=== PATIENT | male | born 1995 | race Caucasian/White ===

== ENCOUNTER 2023-04-26 11:42 | Emergency (ER) | payer OTHER, SELFPAY ==
--- NOTE | 2023-04-26 11:46 | ED.MALEGU ---
HPI - Male Genitourinary General Chief complaint: Urogenital-Male Stated complaint: testicular Swelling Time Seen by Provider: 04/26/23 11:45 Source: patient Mode of arrival: ambulatory Limitations: no limitations History of Present Illness HPI Narrative: Patient is a 27-year-old male that presents with right testicular swelling and pain that has increased over the last 2 weeks. Patient also reports change in urinary flow. Denies any pain with urination. Denies being sexually active and has not had any ejaculation. Denies any fever, chills, nausea, vomiting, diarrhea. Reports right testicle is always slightly larger than left, but is significantly larger at this time. Related Data Home Medications Medication Instructions Recorded Confirmed fluoxetine 40 mg capsule 40 mg PO DAILY 04/26/23 04/26/23 folic acid 1 mg tablet 1 mg PO DAILY 04/26/23 04/26/23 multivitamin with folic acid 400 1 tablet PO DAILY 04/26/23 04/26/23 mcg tablet (Daily-Lore (with folic acid)) propranolol 20 mg tablet 20 mg PO DAILY 04/26/23 04/26/23 thiamine HCl (vitamin B1) 10 mg PO DAILY 04/26/23 04/26/23 Allergies Allergy/AdvReac Type Severity Reaction Status Date / Time No Known Allergies Allergy Verified 04/26/23 11:59 Review of Systems Review of Systems: All systems reviewed & are unremarkable except as noted in HPI and below Constitutional: Constitutional: Denies chills, Denies fever(s), Denies headache(s), Denies malaise and Denies weakness Eyes: Eyes: Denies change in vision, Denies eye discharge and Denies irritation ENT: Denies otalgia, Denies headache(s), Denies nasal congestion, Denies nasal discharge, Denies sinus pain and Denies sore throat Cardiovascular: Cardiovascular: Denies chest pain, Denies edema, Denies palpitations and Denies dyspnea Respiratory: Respiratory: Denies cough and Denies dyspnea Gastrointestinal: Gastrointestinal: Denies abdominal pain, Denies diarrhea, Denies nausea and Denies vomiting Genitourinary: Genitourinary: Denies hematuria, Denies difficulty with ejaculations, Denies dysuria, Denies flank pain, Denies penile discharge, Reports scrotal swelling, Reports testicular pain and Denies urinary urgency Musculoskeletal: Musculoskeletal: Denies back pain and Denies numbness Integumentary/Breasts: Skin/Breast: Denies pruritus and Denies rash Neurologic: Denies headache(s), Denies numbness and Denies weakness Psychiatric: Psychiatric: Reports no additional psychiatric complaints Endocrine: Endocrine: Denies palpitations PMFSH Comments At time of signature, agree with nursing past medical, surgical, social and family history. There is no relevant family history pertinent to the presenting complaint. Exam Const: General: cooperative, healthy appearing, comfortable, no acute distress and well nourished Nutritional Appearance: well nourished Orientation/consciousness: patient oriented x3 HENMT: Head: normocephalic and atraumatic Ears: external ears normal Face/Nose/Sinus: Normal external nose present, Normal nares present and normal facial exam Face and sinus: normal facial exam Eyes: General: appearance normal, both eyes and all related structures Pupils: Equal, round and reactive pupils present EOM: EOMs intact bilaterally Neck: Neck: normal visual inspection, full ROM and supple Chest: Chest palpation & inspection: normal inspection of the chest Resp: Effort & Inspection: normal respiratory effort and able to speak in complete sentences Cardio: Rate: regular rate Rhythm: regular rhythm GI: Inspection: normal to inspection GI Palp: No abdominal tenderness and Yes Soft to palpation : General: Yes no CVA tenderness Penis: Yes normal penis Testes: Enlarged testicle(s) present on the right, epididymal tenderness on the right, testicular swelling on the right and testicular tenderness on the right Back/Spine/Pelvis: Back: no CVA tenderness Skin: General skin exam: normal color and n
[2023-04-26 11:57] VITALS: BP 118/64; PULSE 62; RESP 16; TEMP 36.7; O2SAT 100
[2023-04-26 12:02] VITALS: BP 118/64; PULSE 62; RESP 16; TEMP 36.7; O2SAT 100
== END 2023-04-26 12:14 | disposition short-term general hospital (02) ==
PROVIDERS: Emergency Provider Nurse Practitioner Family
DX: N50.89 Other specified disorders of the male genital organs (principal); Z79.899 Other long term (current) drug therapy
CPT/HCPCS: 99212; G0463

== ENCOUNTER 2023-04-26 12:54 | Emergency (ER) | payer OTHER, SELFPAY ==
--- NOTE | ~2023-04-26 | US_ITS ---
EXAMINATION: US scrotum doppler DATE: 04/26/2023 14:16 INDICATION: Right testicular swelling TECHNIQUE: Testicular sonogram utilizing grayscale and Doppler COMPARISON: None. FINDINGS: The left testis measures 5.5 x 2.9 x 3.1 cm. The right testis measures 5.2 x 2.9 x 3.2 cm. A couple s mall nodules measuring up to 3 mm are seen along the periphery of the intact appearing tunica overlyi ng the right testis likely representing testicular appendages. Symmetric normal grayscale appearance to both testes. There is normal vascular flow to both testes. The left epididymis is normal with norm al vascular flow. The right epididymis is not definitively identified. There is a large right hydroce le with numerous tiny low-level echoes.. There is no varicocele or left hydrocele. IMPRESSION: 1. Large right hydrocele delineating a couple small likely testicular appendages along the periphery of the otherwise normal-appearing right testis. 2. Right epididymis is not identified and could be either atrophic, displaced by the hydrocele or dev elopmentally absent. Consider renal ultrasound to confirm the presence of paired kidneys. Reviewed, dictated and finalized at location A. ERTY CLAIM REP IMPRESSION: 1. Large right hydrocele delineating a couple small likely testicular appendag es along the periphery of the otherwise normal-appearing right testis. 2. Right epididymis is not identified and could be either atrophic, displaced b y the hydrocele or developmentally absent. Consider renal ultrasound to confirm the presence of paired kidneys.
[2023-04-26 12:56] VITALS: BP 113/64; PULSE 60; RESP 17; TEMP 36.4; O2SAT 100
--- NOTE | 2023-04-26 14:03 | PC.NURSE ---
intraoperative neuro tech doing exam at beside at this time
[2023-04-26 14:27] LABS: Appearance Urine Clear (Clear); Bilirubin Urine Negative (Negative); Blood Urine Negative (Negative); Color Urine Yellow (Yellow); Glucose Urine UA Negative (Negative); Ketones Urine Negative (Negative); Leukocyte Esterase Ur Negative LEU/UL (Negative); Nitrate Urine Negative (Negative); Protein Urine Negative (Negative); Specific Grav Ur 1.008 (1.001-1.035); Urobilinogen Urine 0.2 mg/dL (<2.0); pH Urine 5.5 (5.0-9.0)
[2023-04-26 14:50] LABS: Add Urine Microscopic? NO
--- NOTE | 2023-04-26 14:54 | ED.MALEGU ---
HPI - Male Genitourinary General Chief complaint: Urogenital-Male Stated complaint: R. testicular pain Time Seen by Provider: 04/26/23 13:02 History of Present Illness HPI Narrative: 27-year-old male reports for evaluation for swelling to his right testicular for the past few weeks. Patient is currently at [facility] for alcohol detox and states he saw the MD in the facility Who examined patient and stated that if he is not having pain, he likely does not need to be evaluated emergently. The patient did develop pain yesterday and today, therefore went to urgent care and was sent here for an ultrasound evaluation. The patient states the right testicle is swollen and painful which he describes as a sharp pain. He states it is worse when he is sitting and better when he is standing. He also reports improvement in pain when he elevates his testicles. patient also reports worsening pain over the superior aspect of his testicle. He denies dysuria, hematuria, urinary frequency urgency, left testicular pain, abdominal pain, nausea or vomiting, flank pain, diarrhea, fever, penile discharge or lesions, concern for STDs. States he has not had sexual intercourse in multiple years. Related Data Home Medications Medication Instructions Recorded Confirmed fluoxetine 40 mg capsule 40 mg PO DAILY 04/26/23 04/26/23 folic acid 1 mg tablet 1 mg PO DAILY 04/26/23 04/26/23 multivitamin with folic acid 400 1 tablet PO DAILY 04/26/23 04/26/23 mcg tablet (Daily-Lore (with folic acid)) propranolol 20 mg tablet 20 mg PO DAILY 04/26/23 04/26/23 thiamine HCl (vitamin B1) 10 mg PO DAILY 04/26/23 04/26/23 Allergies Allergy/AdvReac Type Severity Reaction Status Date / Time No Known Allergies Allergy Verified 04/26/23 11:59 Review of Systems Review of Systems: CONSTITUTIONAL: Denies fever, chills, or sweats. EYES: Denies visual changes, redness, or discharge. ENT: Denies rhinorrhea, congestion, sore throat, or otalgia. CARDIOVASCULAR: Denies chest pain, palpitations, or edema. RESPIRATORY: Denies cough or dyspnea. GASTROINTESTINAL: Denies abdominal pain, nausea, vomiting, or diarrhea. GENITOURINARY: See HPI SKIN: Denies rash or itching. MUSCULOSKELETAL: Denies back pain, joint pain, or myalgia. NEUROLOGIC: Denies headache, numbness, or weakness. PSYCHIATRIC: Denies anxiety or depression. Exam Narrative: GENERAL: Well-appearing, well-nourished, and in no acute distress. Patient resting comfortably in exam bed. He is pleasant and conversational. HEAD: Normocephalic, atraumatic. EYES: PERRLA and EOMI. ENT: Nares clear, no rhinorrhea or epistaxis. Mucous membranes moist. NECK: Supple. CHEST: Clear to auscultation. No respiratory distress. HEART: Regular rate and rhythm. No murmur heard. Normal peripheral pulses. ABDOMEN: Soft, nontender, nondistended, normal active bowel sounds. No CVA tenderness. : Left testicle without edema or tenderness, no epididymal tenderness. Right testicle edematous with tenderness to this superior aspect of the testicle and over the epididymis. Cremasteric reflex intact bilaterally. Positive Prehn sign. No penile discharge or lesions. EXTREMITIES: Normal range of motion. No edema. SKIN: Warm, dry, no rash. NEURO: No focal deficits. Alert and oriented x3 Course Vital Signs Vital signs: Vital Signs Temperature 97.6 F 04/26/23 12:56 Pulse Rate 60 04/26/23 12:56 Respiratory Rate 17 04/26/23 12:56 Blood Pressure 113/64 04/26/23 12:56 Pulse Oximetry 100 04/26/23 12:56 Oxygen Delivery Room Air 04/26/23 12:56 Temperature 97.6 F 04/26/23 12:56 Pulse Rate 60 04/26/23 12:56 Respiratory Rate 17 04/26/23 12:56 Blood Pressure 113/64 04/26/23 12:56 Pulse Oximetry 100 04/26/23 12:56 Oxygen Delivery Room Air 04/26/23 12:56 MDM - Male Genitourinary MDM Narrative Medical decision making narrative: 27-year-old male reports for evaluation for right
[2023-04-26 15:53] LABS: Trichomonas Vag PCR NOT DETECTED (NOT DETECTE)
[2023-04-26] MEDS: DOXYCYCLINE HYCLATE 100 MG TABLET PO (15:58)
[2023-04-26] MEDS: LIDOCAINE HCL 1% LOCAL INJ 10 ML VIAL (15:58)
[2023-04-26] MEDS: cefTRIAXone 1 GM VIAL 0.5 GM IM (15:58)
--- NOTE | 2023-04-26 15:59 | PC.NURSE ---
Called [facility] made aware pt is d/c and ready for cigar packer and picker. RN states that records of physicians note, labs, and imaging needs to be faxed, reviewed by their MD, prior to pt coming back to ensure pt is safe for their facility. direct service professional made aware and is calling facility.
[2023-04-26 16:17] LABS: Chlamydia trachomatis NOT DETECTED (NOT DETECTE); Neisseria gonorrhoeae PCR NOT DETECTED (NOT DETECTE)
== END 2023-04-26 16:02 ==
PROVIDERS: Emergency Provider Physician Assistant
DX: N45.1 Epididymitis (principal); N43.3 Hydrocele, unspecified
CPT/HCPCS: 76870; 81003; 87491; 87591; 87661; 93976; 96372; 99212; 99284; A9270; G0463; J0696

== ENCOUNTER 2023-06-15 09:39 | Emergency (ER) | payer OTHER, SELFPAY ==
--- NOTE | ~2023-06-15 | CT_ITS ---
EXAMINATION: CT abdomen pelvis w con DATE: 06/15/2023 10:51 INDICATION: Right flank pain. TECHNIQUE: Computed tomography (CT) of the abdomen and pelvis was performed with 100 mL Omnipaque 350 intravenous contrast. Automated exposure control and iterative reconstruction technique were employe d. The dose-length product was 417.10 mGy-cm. COMPARISON: None. FINDINGS: The visualized portions of the lung bases are clear without pneumonia or pleural effusion. The heart size is normal. No pericardial effusion. Paraesophageal varices are noted. The liver, gallb ladder, spleen, pancreas, adrenal glands, and kidneys are normal. There are no dilated loops of bowel . The appendix is normal. There are no pathologically enlarged lymph nodes. There is no free intraper itoneal fluid. There is a large right hydrocele. There is mild lumbar spondylosis. IMPRESSION: 1. Large right hydrocele. 2. Paraesophageal varices. Reviewed, dictated and finalized at location A. ER TYPE BAR AND SEGMENT
--- NOTE | ~2023-06-15 | US_ITS ---
EXAMINATION: US scrotum doppler DATE: 06/15/2023 11:35 INDICATION: Right testicular swelling. TECHNIQUE: Grayscale and Doppler ultrasound images of the testes were obtained. COMPARISON: Ultrasound 04/26/2023 FINDINGS: The right testis measures 4.9 x 3.0 x 3.1 cm. The left testis measures 4.9 x 2.1 x 3.2 cm. There is normal vascular flow to both testes. The right epididymis is not visualized. The left epidid ymis is normal with normal vascular flow. There is a large right hydrocele. IMPRESSION: 1. Large right hydrocele. Reviewed, dictated and finalized at location A. CAL INFORMATION SPECIALIST IMPRESSION: 1. Large right hydrocele.
[2023-06-15 09:42] VITALS: BP 135/97; PULSE 87; RESP 18; O2SAT 99
[2023-06-15 10:11] LABS: Basophils Percent Auto 0.3 % (0.2-1.2); Eosinophils Absolute Auto 0.1 K/mm3 (0-0.3); Eosinophils Percent Auto 1.4 % (0-4.4); Hematocrit 45.4 % (42.0-52.0); Hemoglobin 15.9 g/dL (14.0-18.0); Immature Granulocyte Absolute 0.02 K/mm3 (0.00-0.031); Immature Granulocyte Percent A 0.3 % (0-0.5); Lymphocytes Absolute Auto 0.71 K/mm3 (0.9-3.2); Mean Corpuscular Hemoglobin 32.1 pg (26-34); Mean Corpuscular Volume 91.7 fl (80-100); Mean Platelet Volume 10.6 fl (7.4-10.4); Monocytes Absolute Auto 0.3 K/mm3 (0.1-0.6); Monocytes Percent Auto 5.6 % (2.6-8.5); Neutrophils Absolute Auto 4.7 K/mm3 (1.3-6.7); Neutrophils Percent Auto 80.4 % (45.5-73.1); Platelet Count Result 214 k/mm3 (150-375); Red Blood Count 4.95 M/mm3 (4.6-6.20); Red Cell Distribution Width 11.8 % (11.5-14.5); White Blood Count 5.9 K/mm3 (4.5-10.0)
--- NOTE | 2023-06-15 10:11 | ED.GENADULT ---
HPI - General Adult General Chief complaint: Urogenital-Male Stated complaint: right flank pain Time Seen by Provider: 06/15/23 09:52 History of Present Illness HPI narrative: 27-year-old male present to the emergency department for evaluation of right flank pain and right testicular pain. Patient states he has had both symptoms for the last few months. Patient states he has had some scrotal swelling on the right side and did have previous follow-up with urology that stated this is most likely a hydrocele patient had no ultrasound at that time. Patient was instructed to follow up with Urology again if patient had worsening symptoms. Patient states over the last few days he has had worsening symptoms. Related Data Home Medications Medication Instructions Recorded Confirmed fluoxetine 40 mg capsule 40 mg PO DAILY 04/26/23 04/26/23 folic acid 1 mg tablet 1 mg PO DAILY 04/26/23 04/26/23 multivitamin with folic acid 400 1 tablet PO DAILY 04/26/23 04/26/23 mcg tablet (Daily-Lore (with folic acid)) propranolol 20 mg tablet 20 mg PO DAILY 04/26/23 04/26/23 thiamine HCl (vitamin B1) 10 mg PO DAILY 04/26/23 04/26/23 Allergies Allergy/AdvReac Type Severity Reaction Status Date / Time No Known Allergies Allergy Verified 04/26/23 11:59 Review of Systems Review of Systems: All systems reviewed & are unremarkable except as noted in HPI and below Exam Narrative: APPEARANCE: Well appearing, no pain, no distress, well-nourished. HEAD: normocephalic, atraumatic. EYES: PERRLA/EOMI, conjunctivae clear. NOSE: Normal no drainage NECK: Supple. No adenopathy, no masses. RESPIRATORY: Airway patent, respirations nonlabored. Clear to auscultation bilaterally, no rales, rhonchi, wheezing. CARDIOVASCULAR: Regular rate and rhythm without murmurs rubs or gallops. ABDOMINAL: Soft, nontender, nondistended, normal bowel sounds Genital exam: Large hydrocele of right testicle MUSCULOSKELETAL: Moves all extremities. Strength/ROM intact, No edema, No calf tenderness. NEURO: Alert. Cranial nerves II through XII intact. Grossly intact SKIN: Warm, dry. Normal Color Course Course Emergency Course: Patient was encouraged of close follow-up with Urology. Patient referred to follow up our urologist rather than his prior urology physician Vital Signs Vital signs: Vital Signs Pulse Rate 87 06/15/23 09:42 Respiratory Rate 18 06/15/23 09:42 Blood Pressure 135/97 H 06/15/23 09:42 Pulse Oximetry 99 06/15/23 09:42 Oxygen Delivery Room Air 06/15/23 09:42 Pulse Rate 68 06/15/23 12:43 Respiratory Rate 18 06/15/23 12:43 Blood Pressure 119/82 06/15/23 12:43 Pulse Oximetry 99 06/15/23 12:43 Oxygen Delivery Room Air 06/15/23 09:42 Medical Decision Making MDM Narrative Medical decision making narrative: 27-year-old male presenting to the emergency department for evaluation of right testicular swelling. Patient is afebrile with no leukocytosis and a stable hemoglobin. No acute findings on the patient's CMP patient has normal kidney function. UA was negative for infection. CT of the pelvis did show a large hydrocele with no other acute findings. Ultrasound of the scrotum also confirmed a large hydrocele with no evidence of torsion, both testicles had good blood flow. Patient was updated on results of the workup and patient was encouraged close follow-up with Urology. Patient had previously followed up with [facility] but patient states he preferred to follow up with our urology team. Differential Diagnosis Differential Diagnosis: Torsion, hydrocele, varicocele, abscess Vital Signs Vital Signs: Vital Signs Pulse Rate 87 06/15/23 09:42 Respiratory Rate 18 06/15/23 09:42 Blood Pressure 135/97 H 06/15/23 09:42 Pulse Oximetry 99 06/15/23 09:42 Oxygen Delivery Room Air 06/15/23 09:42 Pulse Rate 68 06/15/23 12:43 Respiratory Rate 18 06/15/23 12:43 Blood Pressure 119
[2023-06-15 10:12] LABS: Appearance Urine Clear (Clear); Bilirubin Urine Negative (Negative); Blood Urine Negative (Negative); Color Urine Yellow (Yellow); Glucose Urine UA Negative (Negative); Ketones Urine Negative (Negative); Leukocyte Esterase Ur Negative LEU/UL (Negative); Nitrate Urine Negative (Negative); Protein Urine Negative (Negative); Specific Grav Ur 1.014 (1.001-1.035); Urobilinogen Urine 0.2 mg/dL (<2.0); pH Urine 6.5 (5.0-9.0)
[2023-06-15 10:22] LABS: Add Urine Microscopic? NO
[2023-06-15 10:23] LABS: Alanine Aminotransferase 227 U/L (6-50); Albumin Level 5.1 g/dL (3.5-5.1); Alkaline Phosphatase 92 U/L (38-126); Anion Gap 10 mmol/L (8-16); Aspartate Amino Transferase 121 U/L (17-59); Bilirubin,Total 0.9 mg/dL (0.2-1.3); Blood Urea Nitrogen 8 mg/dL (9-20); Calcium 9.9 mg/dL (8.4-10.2); Carbon Dioxide 26 mmol/L (22-30); Chloride 100 mmol/L (98-107); Estimated Glomerular Filt Rate > 60; Glucose 125 mg/dL (65-110); Lipase 57 U/L (23-300); Potassium 4.3 mmol/L (3.4-5.0); Sodium 136 mmol/L (137-145)
[2023-06-15] MEDS: KETOROLAC 15 MG/ML VIAL (*BKC) IV PUSH (11:43)
[2023-06-15 12:43] VITALS: BP 119/82; PULSE 68; RESP 18; O2SAT 99
== END 2023-06-15 12:44 | disposition home or self-care (01) ==
PROVIDERS: Emergency Provider Emergency Medicine
DX: N43.3 Hydrocele, unspecified (principal); I85.00 Esophageal varices without bleeding
CPT/HCPCS: 36415; 74177; 76870; 80053; 81003; 83690; 85025; 93976; 96374; 99284; J1885; Q9967

== ENCOUNTER 2023-08-03 18:42 | Emergency (ER) | payer MEDICAID, SELFPAY ==
[2023-08-03 18:52] VITALS: BP 139/110; PULSE 114; RESP 20; TEMP 36.7; O2SAT 100
[2023-08-03 19:07] LABS: Basophils Absolute Auto 0.1 K/mm3 (0.0-0.1); Basophils Percent Auto 0.7 % (0.2-1.2); Eosinophils Absolute Auto 0.1 K/mm3 (0-0.3); Eosinophils Percent Auto 1.4 % (0-4.4); Hemoglobin 17.1 g/dL (14.0-18.0); Immature Granulocyte Absolute 0.02 K/mm3 (0.00-0.031); Immature Granulocyte Percent A 0.3 % (0-0.5); Lymphocytes Absolute Auto 1.26 K/mm3 (0.9-3.2); Lymphocytes Percent Auto 18.2 % (18.3-44.2); Mean Corpuscular HGB Conc 36.4 g/dl (32-36); Mean Corpuscular Hemoglobin 31.9 pg (26-34); Mean Corpuscular Volume 87.7 fl (80-100); Mean Platelet Volume 9.5 fl (7.4-10.4); Monocytes Absolute Auto 0.3 K/mm3 (0.1-0.6); Monocytes Percent Auto 4.9 % (2.6-8.5); Neutrophils Absolute Auto 5.1 K/mm3 (1.3-6.7); Neutrophils Percent Auto 74.5 % (45.5-73.1); Platelet Count Result 203 k/mm3 (150-375); Red Blood Count 5.36 M/mm3 (4.6-6.20); Red Cell Distribution Width 12.5 % (11.5-14.5); White Blood Count 6.9 K/mm3 (4.5-10.0)
--- NOTE | 2023-08-03 19:08 | ED.PSYCH ---
HPI - Psych General Chief Complaint: Psychiatric Symptoms <Suhas Bertrand MD - Last Filed: 08/03/23 20:12> Stated Complaint: SI <Suhas Bertrand MD - Last Filed: 08/03/23 20:12> Time Seen by Provider: 08/03/23 18:58 <Suhas Bertrand MD - Last Filed: 08/03/23 20:12> History of Present Illness HPI Narrative: This is a 27-year-old male, with previous history of suicide attempt at age 15, who presents to the emergency department with suicidal ideations. The patient states his symptoms are exacerbated by ?people? but does not provide more specific details. He states he has a rope with which he would hang himself. He denies using any medications or drugs to harm himself today. He states he has consumed ?a lot? of alcohol. He has no other complaints at this time. <Suhas Bertrand MD - Last Filed: 08/03/23 20:12> Related Data Home Medications: Home Medications Medication Instructions Recorded Confirmed fluoxetine 40 mg capsule 40 mg PO DAILY 04/26/23 04/26/23 folic acid 1 mg tablet 1 mg PO DAILY 04/26/23 04/26/23 multivitamin with folic acid 400 1 tablet PO DAILY 04/26/23 04/26/23 mcg tablet (Daily-Lore (with folic acid)) propranolol 20 mg tablet 20 mg PO DAILY 04/26/23 04/26/23 thiamine HCl (vitamin B1) 10 mg PO DAILY 04/26/23 04/26/23 <Suhas Bertrand MD - Last Filed: 08/03/23 20:12> Allergies/Adverse Reactions: Allergies Allergy/AdvReac Type Severity Reaction Status Date / Time No Known Allergies Allergy Verified 08/03/23 19:04 <Suhas Bertrand MD - Last Filed: 08/03/23 20:12> Review of Systems Review of Systems: CONSTITUTIONAL: Denies fever, chills, or sweats. EYES: Denies visual changes, redness, or discharge. ENT: Denies rhinorrhea, congestion, sore throat, or otalgia. CARDIOVASCULAR: Denies chest pain, palpitations, or edema. RESPIRATORY: Denies cough or dyspnea. GASTROINTESTINAL: Denies abdominal pain, nausea, vomiting, or diarrhea. GENITOURINARY: Denies dysuria or hematuria. SKIN: Denies rash or itching. MUSCULOSKELETAL: Denies back pain, joint pain, or myalgia. NEUROLOGIC: Denies headache, numbness, dizziness, or weakness. PSYCHIATRIC: Suicidal ideations, denies homicidal ideations or hallucinations. Denies anxiety or depression. <Suhas Bertrand MD - Last Filed: 08/03/23 20:12> PMFSH Past Medical History Medical History: Medical History Hydrocele Suicide attempt <Suhas Bertrand MD - Last Filed: 08/03/23 20:12> Surgical History Surgical History: Surgical History S/P ORIF (open reduction internal fixation) fracture <Suhas Bertrand MD - Last Filed: 08/03/23 20:12> Social History Social History: Social History Smoking status: Never smoker Alcohol intake: current Substance use: current Substance use type: marijuana <Suhas Bertrand MD - Last Filed: 08/03/23 20:12> Exam Narrative: GENERAL: Well-developed, well-nourished, and in no acute distress. HEAD: Normocephalic, atraumatic. EYES: PERRLA and EOMI. CHEST: Clear to auscultation. No respiratory distress. No wheezes rales or rhonchi HEART: Regular rate and rhythm. No murmur heard. Normal peripheral pulses. ABDOMEN: Soft, nontender, nondistended, normal active bowel sounds. EXTREMITIES: Normal range of motion. No edema. SKIN: Warm, dry, no rash. NEURO: Alert and oriented x3. No focal deficit. Moving all 4 limbs spontaneously PSYCH: Flattened affect, depressed mood. <Suhas Bertrand MD - Last Filed: 08/03/23 20:12> Course Course Emergency Course: 20:10 - Chemistries demonstrate alcohol level of 291, ALT/ALT elevation of 135/79 respectively but is otherwise unremarkable. Patient is on calming ED physician, Dr. Alanis pending sobriety and psychiatric c
[2023-08-03 19:16] LABS: Acetaminophen < 10 ug/mL (10-30); Ethanol 291 mg/dL (<10); Salicylate < 1.0 mg/dL (2-20)
[2023-08-03 19:17] LABS: Alanine Aminotransferase 135 U/L (6-50); Albumin Level 5.5 g/dL (3.5-5.1); Alkaline Phosphatase 110 U/L (38-126); Anion Gap 9 mmol/L (4-12); Aspartate Amino Transferase 79 U/L (17-59); Bilirubin,Total 0.7 mg/dL (0.2-1.3); Blood Urea Nitrogen 6 mg/dL (9-20); Calcium 9.7 mg/dL (8.4-10.2); Carbon Dioxide 30 mmol/L (22-30); Chloride 105 mmol/L (98-107); Estimated CRCL calculation 156 ml/min; Estimated Glomerular Filt Rate > 60; Glucose 96 mg/dL (65-110); Potassium 3.6 mmol/L (3.4-5.0); Sodium 144 mmol/L (137-145)
[2023-08-03 19:43] LABS: SARS-CoV-2 RNA PCR Negative (Negative)
[2023-08-03 20:26] LABS: Appearance Urine Clear (Clear); Bilirubin Urine Negative (Negative); Blood Urine Negative (Negative); Color Urine Yellow (Yellow); Glucose Urine UA Negative (Negative); Ketones Urine Negative (Negative); Leukocyte Esterase Ur Negative LEU/UL (Negative); Nitrate Urine Negative (Negative); Protein Urine Negative (Negative); Urobilinogen Urine 0.2 mg/dL (<2.0); pH Urine 7.5 (5.0-9.0)
[2023-08-03 20:36] LABS: Add Urine Microscopic? NO; Specific Grav Ur 1.004 (1.001-1.035)
[2023-08-03 20:42] LABS: Barbiturate Screen Urine Negative (Negative); Benzodiazepines Screen Urine Negative (Negative)
[2023-08-03 20:44] LABS: Amphetamine Screen Urine Negative (Negative); Cannabinoid Screen Urine Negative (Negative); Cocaine Screen Urine Negative (Negative); Methadone Screen Urine Negative (Negative)
[2023-08-03 20:49] LABS: Phencyclidine Screen Urine Negative (Negative)
--- NOTE | 2023-08-03 20:50 | PC.NURSE ---
Pt made aware by this RN and by EDP provider that he cannot be evaluated by Crisis until his blood alcohol level lowers. Pt became agitated with this and stated My mother works for [employer] were just going to leave and go get evaluated EDP provider Dr. Alanis told pt that we are not able to let him leave at this time. Pt and mother visibly agitated by this.
[2023-08-03 20:59] LABS: Opiate Screen Urine Negative (Negative)
--- NOTE | 2023-08-03 22:57 | PC.NURSE ---
Pt spoke with EDP Dr. Alanis asking for medication to help with his alcohol withdrawals . 1 mg PO Ativan was ordered. This RN went to pt room to administer medication. This RN explained to pt that Ativan can help treat symptoms of anxiety and withdrawals. Pt began yelling at this RN go fuck yourself aren't you supposed to be a nurse that is not what Ativan is for . This RN asked pt if he would like to take the medication and pt responded go fuck yourself, go fuck yourself . Medication returned to Pyxis.
--- NOTE | 2023-08-03 23:05 | PC.NURSE ---
this rn attempted to provided patient with medication prescribed. pt stated screaming, I want Ativan . this rn educated patient on medication that was ordered by edp dr. em. pt then stated, are you a nurse, do you want to know what screaming even is . this rn asked patient x2 if he wanted the medications being provided at this time. pt then stated, tell me the symptoms of alcohol withdrawal . this rn asked patient if he would like the medication at this time. pt refused medications at this time.
--- NOTE | 2023-08-03 23:35 | PC.NURSE ---
Sitter at bedside reported to this RN that pt was pulling his hair and smacking himself in the face. EDP provider Dr. Alanis made aware. Dr. Alanis went to pt bedside and pt continued to state go fuck yourself fuck off sarath .
--- NOTE | 2023-08-04 00:27 | PC.NURSE ---
Pt remains agitated in room. Pt asked this RN how often his vitals will be taken. This RN explained protocols to pt. this RN also asked pt if he would like his vitals taken at this time and pt stated no I'll refuse it if you do try . Mother voiced concerns of pts blood pressure when he arrived but pt will not let this RN recheck his pressures. Pt also stated the doctor peaked his head in here so I guess that makes him think hes a good doctor. Im probably going to of withdrawals in here . Provider made aware of pts statements and behavior.
--- NOTE | 2023-08-04 00:34 | PC.NURSE ---
Pt removed his ID bracelet and began attempting to cut his arm with the bracelet. Pt reported he scratched himself with the bracelet in multiple places across his arms but refused to let this RN assess his arms. Pt then proceeded to place his ID bracelet in his pants. This RN asked pt to remove bracelet from pants, ID bracelet no longer in pts possession.
--- NOTE | 2023-08-04 02:07 | PC.NURSE ---
@[id number] Mother became agitated with security who was sitting outside of pt room. Mother began pointing at staff members and stating im not happy with this place. teenage babysitter reported that mother made multiple statements about how the nurses and doctors at [facility] are not real , certified adaptive physical educator also reported mother called her a black bitch . This RN asked mother to please go out to waiting room. Mother stated to this RN He's going to leave just so you know This RN stated to mother that the police would be called if pt eloped from hospital. Mother said he doesnt care . At this time pt ran from room 15 out the front entrance of the Emergency Department, mother followed pt. Pt was stopped by ED security and Pavan GRACE was called. Pt was brought back to room by security and Pavan GRACE talked with mother. Mother was asked to leave the hospital due to her comments towards staff members.
[2023-08-04] MEDS: HALOPERIDOL LACTATE 5 MG/ML VIAL IM (02:19)
[2023-08-04] MEDS: LORazepam INJ (*CRX) 2 MG/ML VIAL IM (02:19)
[2023-08-04 02:23] LABS: Ethanol 153 mg/dL (<10)
--- NOTE | 2023-08-04 02:47 | PC.NURSE ---
This RN went into room with ANDRIA Adams to draw blood. Upon entering the room mother was yelling at security from inside the room and moved out into the terrell. This RN asked mother of pt to not yell and to step around the corner to speak to chief information security officer to avoid irritation of pt. Mother of pt started yelling at this RN stating this RN was stupid and unqualified to be a nurse . This RN walked up to triage to get additional chief information security officer. This RN called OB security to send additional help to ask mother to leave.
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
[2023-08-04 05:29] VITALS: BP 102/66; PULSE 86; RESP 14; TEMP 37.3; O2SAT 97
[2023-08-04 05:35] LABS: Ethanol 35 mg/dL (<10)
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
--- NOTE | 2023-08-04 05:59 | PC.NURSE ---
Pt medically cleared. Crisis contacted at 0545 for pt evaluation.
--- NOTE | 2023-08-04 07:10 | PC.NURSE ---
Crisis here to evaluate
== END 2023-08-04 08:10 | disposition home or self-care (01) ==
PROVIDERS: Emergency Medicine; Emergency Provider Preventive Medicine Aerospace Medicine
DX: F10.14 Alcohol abuse with alcohol-induced mood disorder (principal); F10.129 Alcohol abuse with intoxication, unspecified; Y90.8 Blood alcohol level of 240 mg/100 ml or more; Z11.52 Encounter for screening for COVID-19; Z91.51 Personal history of suicidal behavior
CPT/HCPCS: 36415; 80053; 80307; 81003; 84443; 85025; 87635; 96372; 99285; J1630; J2060

== ENCOUNTER 2025-04-08 03:52 | Emergency (ER) | payer OTHER, SELFPAY ==
--- OUTSIDE RECORDS SUMMARY | 2024-11-06 11:00 | XMS_ITS ---
Author Organization [facility] Address [address] [place] [address] Phone [phone] Care Team Providers Care Commercial Credit Reviewer Name Role Phone Jasmin Guillen APRN Primary Care Provider Nova Oquendo Unavailable [phone] REASON FOR VISIT labs Medications Medication SIG (Take, Route, Frequency, Duration) Notes Start Date End Date Diagnosis (ICD Code) Status Omeprazole 20 MG Capsule Delayed Release 1 capsule 1/2 to 1 hour before morning meal Orally Once a day Active Naltrexone HCl 50 MG Tablet 1 tablet Orally Once a day; Duration: 14 days 5 Alcohol use disorder (ICD_10 - F10.99) Active Vivitrol 380 MG Suspension Reconstituted 380 MG Intramuscular every 28 days; Duration: 28 days 3 Alcohol use disorder (ICD_10 - F10.99) Active lamoTRIgine 25 MG Tablet 1 tablet Orally One tablet (25 mg) once daily for two weeks then increase to two tablets once daily (50 mg); Duration: 30 days 5 Schizoaffective disorder, bipolar type (ICD_10 - F25.0) Active Benztropine Mesylate 2 MG Tablet TAKE 1 TABLET BY MOUTH TWICE A DAY; Duration: 30 Schizoaffective disorder, bipolar type (ICD_10 - F25.0) Active Social History Sex Observation Social History Observation Description Sex Observation Male Sexual Orientation Social History Observation Description Sexual Orientation Straight or heterose xual Gender Identity Social History Observation Description Gender Identity Male Encounters Date Time Type Facility Location Provider Diagnosis 11/06/2024 11:00 AM Office Visit [facility] [place] [address] [place] [address] Nova Oquendo Plan Of Treatment Next Appt Details Provider Name:Randy sagastume, 04/13/2025 11:00:00 AM, [address] [place] [address], [phone], Provider Name:Nova thompson, 04/22/2025 12:40:00 PM, [address] [facility], [place], [address], Medical (General) History Medical History History ICD Code Alcohol use disorder Kratom use GERD Surgical History Surgery Date(Month/Year) [place] in left leg 2019 Hospitalization History Reason Date(Month/Year) [facility] 2021 [facility] x2 2021 [place] [address] Mental Health 2022 [place] in left leg 2018 Progress Notes * Braxton HERNÁNDEZDOB:1995 ([age] yo M)Acc No.[id number]:11/06/2024 UNLOCKED PROGRESS NOTE Patient: S Dylon KELLEReb Provider: Godfrey Oquendo, MSN, FUSING MACHINE FEEDER, YOUTH TEACHER-C :1995 A ge:29 Y S ex:Male Date:11/06/2024 Address:[address] [place], [place] [id number] Pcp:Jasmin Guillen Check In:10:54 AM SUPERVISOR [employer] Subjective: * Chief Complaints: * 1 . Labs. * Screening: * * Medical History: * Medications: T aking Omeprazole 20 MG Capsule Delayed Release 1 capsule 1/2 to 1 hour before morning meal Orally Once a day , Taking Vivitrol 380 MG Suspension Reconstituted 380 MG Intramuscular every 28 days , Taking Naltrexone HCl 50 MG Tablet 1 tablet Orally Once a day , Taking Benztropine Mesylate 2 MG Tablet TAKE 1 TABLET BY MOUTH TWICE A DAY , Taking lamoTRIgine 25 MG Tablet 1 tablet Orally One tablet (25 mg) once daily for two weeks then increase to two tablets once daily (50 mg) Objective: * Vitals: Assessment: Plan: * Treatment: * * Electronic signature of Bernardo Oquendo , [id number] on 04/08/2025 at 04:38 AM [employer] Sign off status: Pending * Provider: Godfrey Oquendo, MSN, FUSING MACHINE FEEDER, YOUTH TEACHER-C Date: 0 11/06/2024 Generated for Fausto conde/Jesus/Sukumaritting on: 1 06/09/2024 04:38 AM SUPER[employer]
[2025-04-08 03:55] VITALS: BP 114/85; PULSE 92; RESP 16; TEMP 36.5; O2SAT 97
--- NOTE | 2025-04-08 04:10 | ECG_ITS ---
Test Date: 2025-04-08 07:24:18 Measurements Intervals [place] Rate: 84 P: 49 NM: 162 QRS: 21 QRSD: 85 T: 48 QT: 353 QTc: 420 Interpretive Statements SINUS RHYTHM BASELINE ARTIFACT- I, II, AVR, AVL, AVF, V1 NORMAL ECG No previous ECG available for comparison Electronically Signed On 04-08-2025 09:02:51 WEB MARKETING MANAGER by Yann Gasca D.O.
[2025-04-08 04:38] LABS: Hematocrit 42.0 % (42.0-52.0); Hemoglobin 15.6 g/dL (14.0-18.0); Immature Granulocyte Percent A 0.2 % (0-0.5); Lymphocytes Absolute Auto 1.01 K/mm3 (0.9-3.2); Mean Corpuscular HGB Conc 37.1 g/dl (32-36); Mean Corpuscular Hemoglobin 32.0 pg (26-34); Mean Corpuscular Volume 86.2 fl (80-100); Nucleated Red Blood Cells Absolute Auto 0.000 K/mm3 (0.0-0.012); Nucleated Red Blood Cells Perc 0.0 % (0.0-0.2); Platelet Count Result 256 k/mm3 (150-375); Red Blood Count 4.87 M/mm3 (4.6-6.20); White Blood Count 10.1 K/mm3 (4.5-10.0)
--- OUTSIDE RECORDS SUMMARY | 2025-04-08 04:38 | XMS_ITS | Clinical Summary ---
Author Organization [facility] Address [address] [place] [address] Care Team Providers Care Environmental Marketer Name Role Phone Iris Barron MD Primary Care Provider [phone] Source Comments [facility],non-owned Affiliates and Associated Physician Practices is amultiple site organization consisting of ambulatory clinics and hospital sitesin [place], [place], [place] and [place]. This disclosure is being madepursuant to the Care Everywhere program and may not contain all information available regarding this patient. Last updated 18.[facility] Allergies No known active allergies Medications * Be aware that medications may not be up to date on this document. Alwaysverify current medications with the patient. oxyCODONE, immediate release, (Roxicodone) 5 MG tabletIndicati ons:Other hydrocele Take 1 (one) tablet by mouth every 6 hours as needed for Pain 12 tablet 4 Active Additional Information Patient not taking.Reported on 12/10/2023 acetaminophen (Tylenol) 500 MG tablet Take 1 (one) tablet by mouth every 4 hours as needed for Fever or Pain Maximum allowable Acetaminophen amount = 4 Grams (4000 mg) / 24 hours. Active bacitracin ointment Apply to affected area 3 times daily 14 g 4 Active Additional Information Patient not taking.Reported on 12/10/2023 Active Problems Problem Noted Date Diagnosed Date Drug ingestion, intentional 07/12/2010 Overview (07/14/2010): 14 y.o admitted for intentional drug overdose on 07/10/10. He ingested melatonin & Methadone ( mom takes for chronic pain). Braxton initially received care at [facility] where he received Narcan,zofran & activated charcoal. He was transferred [facility] PICU where he was continued on a narcan drip due to hypopnea and had desaturations to upper 80's. Narcan last given on 07/11 about 1532. Narcan stopped while in PICU. Patient was transferred to floors on 07/12/2010. Patient had some dizziness, that has subsided. Orthostatics and Vital signs have been within normal limits since he has been on floors. He was evaluated by psych and said to have major depression. At this time he his medically stable and may be transferred to an outpatient psych unit for further assessment and treatment. Major depressive disorder, single episode, moder ate 07/12/2010 Overview (07/13/2010): Pt evaluated by Ms. Grace Hernandez while here at [facility] and displayed signs of MDD. Due to suicide attempts, plan is for patient to be transferred to psychiatric facility once medically stable. Social History Tobacco Use Types Packs/Day Years Used Date Smoking Tobacco: Every Day Cigarettes Smokeless Tobacco: Never Tobacco Cessation:Ready to Q uit: Not Asked; Counseling Given: Not Answered Alcohol Use Standard Drinks/Week Comments Yes 0 (1 standard drink = 0.6 oz pur e alcohol) social AUDIT-C Answer Date Recorded Q1: How often do you have a drink containing alcohol? Never 11/07/2023 Q2: How many drinks containi ng alcohol do you have on a typical day when you are drinking? Patient does not drink Q3: How often do you have si x or more drinks on one occasion? Never 11/07/2023 Sex and Gender Information Value Date Recorded Sex Assigned at Not on file Legal Sex Male 11:32 AM MEDICAL RECORDS ADMINISTRATOR Gender Identity Not on file Sexual Orientation Not on file Last Filed Vital Signs Vital Sign Reading Time Taken Comments Blood Pressure 129/88 12/10/2023 1:31 PM CDT Pulse 74 12/10/2023 1:31 PM CDT Temperature 36.7 C (98 F) 12/10/2023 1:31 PM CDT Respiratory Rate 19 12/10/2023 1:31 PM CDT Oxygen Saturation 98% 12/10/2023 1:31 PM CDT Inhaled Oxygen Concentration - - Weight 83.6 kg (184 lb 6.4 oz) 12/10/2023 1:31 P M CDT Height 188 cm (6' 2) 12/10/2023 1:31 PM CDT Body Mass Index 23.68 12/10/2023 1:31 PM CDT Plan of Treatment Health Maintenance Due Date Last Done Comments HIV SCREENING 2008 HEPATITIS C SCREENING 09/29/2011 DTAP/TDAP/TD VACCINES (1 - Tdap) 2012 HEPATITIS B VACCINE (1 of 3 - 19+ 3-dose series) 2012 PNEUMOCOCCAL VACCINE (1 of 2 - PCV) 2012 HPV VACCINE (1 - 3-dose SCDM series) 2020 DEPRESSION SCREENING 04/15/2024 COVID-19 VACCINE (1 - 2024-2 6 season) 2024 INFLUENZA VACCINE (#1) 2024 ZOSTER VACCINE (1 of 2) 10/04/2043 HIB VACCINE Aged Out No longer eligi ble based on patient's age to complete this topic MENINGOCOCCAL (Group B) VACC INE SHARED DECISION-MAKING Aged Out No longer eligibl e based on patient's age to complete this topic MENINGOCOCCAL GROUPS A/C/Y/W VACCINE Aged Out No longer eligible b ased on patient's age to complete this topic Insurance [facility] Care Teams Environmental Marketer Relationship Specialty Start Date End Date Iris Barron MD [address] [place] [id number] PCP - General Pediatrics 09/06/23
--- OUTSIDE RECORDS SUMMARY | 2025-04-08 04:38 | XMS_ITS | Encounter Summary ---
Author Organization [facility] Address [facility] [place] [address] Care Team Providers Care Job Training Supervisor Name Role Phone None, Provider Primary Care Provider Unavaila ble Encounter Details Date Type Department Care Team (Late st Contact Info) Description 09/20/[address] [facility] Conversion [address] [place] [address] , Generic Conversion, Social History Tobacco Use Types Packs/Day Years Used Date Smoking Tobacco: Never Assessed Sex and Gender Information Value Date Recorded Sex Assigned at Not on file Legal Sex Male 10:04 PM DUMPER BUL[employer] Gender Identity Not on file Sexual Orientation Straight 12/22/2018 10 :58 AM CDT documented as of this encounter Plan of Treatment Not on file documented as of this encounter Visit Diagnoses Not on filedocumented in this encounter Care Teams Job Training Supervisor Relationship Specialty Start Date End Date None, ProviderMD PCP - General 12/22/18 documented as of this encounter
--- OUTSIDE RECORDS SUMMARY | 2025-04-08 04:38 | XMS_ITS | Patient Health Record ---
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 office as well. If you ever miss 4 or more consecutive days of taking this medication, please let the office know. The prescriber may need to restart this medication at 25 mg daily and titrate up as tolerated. Has not tolerated various SGAs due to abnormal movements. Start Vilazodone, no concerns on GeneSight. Reviewed side effects which may include increased risk of suicide, anxiety, sleep disturbance, nausea, dry mouth, increased bruising, sexual dysfunction, britney, wt gain, and serotonin syndrome. Client v/u. 03/18/2025 Schizoaffective disorder, bipolar type (ICD-10 - F25.0) Patient describes low energy, difficulty with self-care, and negative self-talk. Started a new antidepressant prior to last visit, which has improved energy and motivation. Patient is working on challenging negative thoughts and improving self-concept.- Continue current antidepressant.- Encourage patient to practice positive self-talk and challenge negative thoughts.- Assign homework to break down tasks into manageable steps and celebrate small successes. 03/23/2025 Schizoaffective disorder, bipolar type (ICD-10 - F25.0) Mild to moderate improvement in mood with lamictal, continue at this time. Continue therapy. Take as prescribed. Reviewed purpose (mood stability, reduce depression, and help with irritability), benefits, and risks - including sedation, nausea, rash - benign or serious. A serious rash could cause shedding of all skin and even become fatal. Stop taking medication immediately if a rash occurs and seek emergency care. Notify our office as well. If you ever miss 4 or more consecutive days of taking this medication, please let the office know. The prescriber may need to restart this medication at 25 mg daily and titrate up as tolerated. Has not tolerated various SGAs due to abnormal movements. Continue vilazodone: no concerns on GeneSight. Reviewed side effects which may include increased risk of suicide, anxiety, sleep disturbance, nausea, dry mouth, increased bruising, sexual dysfunction, britney, wt gain, and serotonin syndrome. Client v/u. 09/08/2024 Schizoaffective disorder, bipolar type (ICD-10 - F25.0) 10/07/2024 Schizoaffective disorder, bipolar type (ICD-10 - F25.0) Start Fanapt as low risk compared to others in SGA class when it comes to akathisia which client has struggled with akathisia with other SGAs tried. Tried: Abilify- akathisia and anxiety, Risperidone- weight gain and akathisia, Latuda- akathisia and anxiety Start Fanapt. Take as prescribed. Reviewed purpose (mood stability), benefits, and risks - low blood pressure, metabolic syndrome with high cholesterol or high blood sugars, change in cardiac conduction, nausea, vomiting, temporary or permanent movement disorders, and akathisia. 10/12/2024 Schizoaffective disorder, bipolar type (ICD-10 - F25.0) 11/04/2024 Schizoaffective disorder, bipolar type (ICD-10 - F25.0) Begin Lamotrigine as prescribed. Reviewed purpose (mood stability, reduce depression, and help with irritability), benefits, and risks - including sedation, nausea, rash - benign or serious. A serious rash could cause shedding of all skin and even become fatal. Stop taking medication immediately if a rash occurs and seek emergency care. Notify our office as well. If you ever miss 4 or more consecutive days of taking this medication, please let the office know. The prescriber may need to restart this medication at 25 mg daily and titrate up as tolerated. Client reports has not been on mood stabilizer before that he knows of. Due to SE with various antipsychotics, start lamotrigine- may look to Eneida if s/s of psychosis are present. Genesight ordered as well. 12/28/2024 Schizoaffective disorder, bipolar type (ICD-10 - F25.0) Moderate improvement in mood with lamictal, continue. Take as prescribed. Reviewed purpose (mood stability, reduce depression, and help with irritability), benefits, and risks - including sedation, nausea, rash - benign or serious. A serious rash could cause shedding of all skin and even become fatal. Stop taking medication immediately if a rash occurs and seek emergency care. Notify our office as well. If you ever miss 4 or more consecutive days of taking this medication, please let the office know. The prescriber may need to restart this medication at 25 mg daily and titrate up as tolerated. Has not tolerated various SGAs due to abnormal movements. Start Cobenfy. Discussed to take dose at least one hour before a meal or at least two hours after a meal. Discussed to take twice daily as this is not an extended release medication. Discussed that intermittent blood work may be required to assess effects on organs such as liver and kidneys. Discussed side effects of the medication may include: nausea, vomiting, dyspepsia, abdominal pain, diarrhea, gastroesophageal reflux, constipation, hypertension, tachycardia, dizziness, and the rare but possible dangerous side effect of angioedema. 12/30/2024 Schizoaffective disorder, bipolar type (ICD-10 - F25.0) 03/30/2025 Anxiety disorder (ICD-10 - F41.9) 11/04/2024 Medication monitoring encounter (ICD-10 - Z51.81) 12/02/2024 Bipolar 2 disorder (ICD-10 - F31.81) Lamotrigine as prescribed. Reviewed purpose (mood stability, reduce depression, and help with irritability), benefits, and risks - including sedation, nausea, rash - benign or serious. A serious rash could cause shedding of all skin and even become fatal. Stop taking medication immediately if a rash occurs and seek emergency care. Notify our office as well. If you ever miss 4 or more consecutive days of taking this medication, please let the office know. The prescriber may need to restart this medication at 25 mg daily and titrate up as tolerated. 06/26/2024 Alcohol use disorder (ICD-10 - F10.99) 07/30/2024 Alcohol use disorder (ICD-10 - F10.99) Oral naltrexone sent for client to take towards end of the month as needed if cravings occur. 12/28/2024 Alcohol use disorder (ICD-10 - F10.99) 02/10/2025 Alcohol use disorder (ICD-10 - F10.99) 03/03/2025 Alcohol use disorder (ICD-10 - F10.99) 12/02/2024 Anxiety disorder (ICD-10 - F41.9) Starting clonidine ER for multipurpose: anxiety, possible ADHD, restless legs. Discussed r/b/se. 11/04/2024 Alcohol use disorder (ICD-10 - F10.99) 12/02/2024 Alcohol use disorder (ICD-10 - F10.99) 03/30/2025 Alcohol use disorder (ICD-10 - F10.99) 03/05/2025 Schizoaffective disorder, bipolar type (ICD-10 - F25.0) 03/18/2025 Nicotine dependence with current use (ICD-10 - F17.200) 06/26/2024 Exposure to potential infection (ICD-10 - Z20.9) 03/23/2025 Alcohol use disorder (ICD-10 - F10.99) 03/30/2025 Insomnia, unspecified (ICD-10 - G47.00) Difficulty sleeping with missed nights every other day and persistent fatigue. Lack of consistent sleep routine and reliance on distractions before bed. Sleep problems are making daily functioning and mood worse. Patient has tried podcasts, reading, and ambient sounds to help induce sleep. - Recommended establishing a consistent bedtime routine. - Advised reducing phone and TV use before bed. - Suggested reading or using non-stimulating background noise to facilitate sleep. - Encouraged patient to write helpful thoughts in a notepad or phone. 12/28/2024 Anxiety disorder (ICD-10 - F41.9) Continue clonidine ER for multipurpose: anxiety, possible ADHD, restless legs. Discussed r/b/se. 02/10/2025 Anxiety disorder (ICD-10 - F41.9) Continue clonidine ER for multipurpose: anxiety, possible ADHD, restless legs. Discussed r/b/se. 03/03/2025 Anxiety disorder (ICD-10 - F41.9) Continue clonidine ER for multipurpose: anxiety, possible ADHD, restless legs. Discussed r/b/se. 03/05/2025 Anxiety disorder (ICD-10 - F41.9) 03/18/2025 Anxiety disorder (ICD-10 - F41.9) Patient reports increased anxiety, especially related to riding in cars and [place] Expresses fear of car accidents, road rage, and lack of control as a passenger. Patient is attempting various distraction strategies during car rides. - Encourage patient to try new distraction techniques, such as letter games, during car rides. - Support patient in continuing to go outside for sun exposure and maintaining engagement in daily activities. 03/23/2025 Anxiety disorder (ICD-10 - F41.9) Continue clonidine ER for multipurpose: anxiety, possible ADHD, restless legs. Discussed r/b/se. 03/18/2025 Insomnia, unspecified (ICD-10 - G47.00) 06/26/2024 Nicotine dependence, unspecified, uncomplicated (ICD-10 - F17.200) 03/05/2025 Nicotine dependence with current use (ICD-10 - F17.200) 06/25/2024 Other Email sent to systems support specialist for AIMS tomorrow when in for MAR appt. Reasons, potential benefits, potential risks, interactions and side effects of all medications were discussed. The Patient/Guardian asked appropriate questions, appeared to understand the answers, and decided to accept the treatment and continue being followed. Alternatives and expected course without treatment were reviewed. The Patient/Guardian is aware of the need to contact the office or return for an earlier appointment if any problems or concerns arise. May also contact the 24-hour crisis hotline ([facility]), refer to the closest emergency room or call 911 if new symptoms arise of existing symptoms worsen. The Patient/Guardian is aware that this would apply to symptoms like: suicidal ideation, homicidal ideation, high risk behaviors, manic symptoms, psychotic symptoms, physical symptoms, or any other symptoms that may be dangerous to self or others. Greater than 50% of time spent on coordination and counseling where psychopharmacology as well as psychotherapeutic interventions were discussed along with review of treatments in the past. Education provided concerning need for adequate hydration. Patient/Guardian verbalized understanding of education, treatment plan and follow up. This session was completed telephonically with client/parental/jb n consent: Unable to fully determine movement status, assess appearance, affect, AIMS, or vital signs. 07/29/2024 Other Reasons, potential benefits, potential risks, interactions and side effects of all medications were discussed. The Patient/Guardian asked appropriate questions, appeared to understand the answers, and decided to accept the treatment and continue being followed. Alternatives and expected course without treatment were reviewed. The Patient/Guardian is aware of the need to contact the office or return for an earlier appointment if any problems or concerns arise. May also contact the 24-hour crisis hotline ([facility]), refer to the closest emergency room or call 911 if new symptoms arise of existing symptoms worsen. The Patient/Guardian is aware that this would apply to symptoms like: suicidal ideation, homicidal ideation, high risk behaviors, manic symptoms, psychotic symptoms, physical symptoms, or any other symptoms that may be dangerous to self or others. Greater than 50% of time spent on coordination and counseling where psychopharmacology as well as psychotherapeutic interventions were discussed along with review of treatments in the past. Education provided concerning need for adequate hydration. Patient/Guardian verbalized understanding of education, treatment plan and follow up. This session was completed telephonically with client/parental/jb n consent: Unable to determine movement status, assess appearance, affect, AIMS, or vital signs. 07/30/2024 Other Discussed medication side effects, adverse effects, risks, benefits, as well as interactions. Encouraged non-use of alcohol. Has Vivitrol alert bracelet, necklace, and wallet card. Recommended participation in recovery groups and/or counseling services. May contact office with questions or concerns. 08/24/2024 Other Reasons, potential benefits, potential risks, interactions and side effects of all medications were discussed. The Patient/Guardian asked appropriate questions, appeared to understand the answers, and decided to accept the treatment and continue being followed. Alternatives and expected course without treatment were reviewed. The Patient/Guardian is aware of the need to contact the office or return for an earlier appointment if any problems or concerns arise. May also contact the 24-hour crisis hotline ([facility]), refer to the closest emergency room or call 911 if new symptoms arise of existing symptoms worsen. The Patient/Guardian is aware that this would apply to symptoms like: suicidal ideation, homicidal ideation, high risk behaviors, manic symptoms, psychotic symptoms, physical symptoms, or any other symptoms that may be dangerous to self or others. Greater than 50% of time spent on coordination and counseling where psychopharmacology as well as psychotherapeutic interventions were discussed along with review of treatments in the past. Education provided concerning need for adequate hydration. Patient/Guardian verbalized understanding of education, treatment plan and follow up. 10/07/2024 Other Plan to decrease Cogentin if able once stable with Fanapt. Reasons, potential benefits, potential risks, interactions and side effects of all medications were discussed. The Patient/Guardian asked appropriate questions, appeared to understand the answers, and decided to accept the treatment and continue being followed. Alternatives and expected course without treatment were reviewed. The Patient/Guardian is aware of the need to contact the office or return for an earlier appointment if any problems or concerns arise. May also contact the 24-hour crisis hotline ([facility]), refer to the closest emergency room or call 911 if new symptoms arise of existing symptoms worsen. The Patient/Guardian is aware that this would apply to symptoms like: suicidal ideation, homicidal ideation, high risk behaviors, manic symptoms, psychotic symptoms, physical symptoms, or any other symptoms that may be dangerous to self or others. Greater than 50% of time spent on coordination and counseling where psychopharmacology as well as psychotherapeutic interventions were discussed along with review of treatments in the past. Education provided concerning need for adequate hydration. Patient/Guardian verbalized understanding of education, treatment plan and follow up. This session was completed telephonically with client/parental/jb n consent: Unable to determine movement status, assess appearance, affect, AIMS, or vital signs. 11/04/2024 Other Reasons, potential benefits, potential risks, interactions and side effects of all medications were discussed. The Patient/Guardian asked appropriate questions, appeared to understand the answers, and decided to accept the treatment and continue being followed. Alternatives and expected course without treatment were reviewed. The Patient/Guardian is aware of the need to contact the office or return for an earlier appointment if any problems or concerns arise. May also contact the 24-hour crisis hotline ([facility]), refer to the closest emergency room or call 911 if new symptoms arise of existing symptoms worsen. The Patient/Guardian is aware that this would apply to symptoms like: suicidal ideation, homicidal ideation, high risk behaviors, manic symptoms, psychotic symptoms, physical symptoms, or any other symptoms that may be dangerous to self or others. Greater than 50% of time spent on coordination and counseling where psychopharmacology as well as psychotherapeutic interventions were discussed along with review of treatments in the past. Education provided concerning need for adequate hydration. Patient/Guardian verbalized understanding of education, treatment plan and follow up. This session was completed telephonically with client/parental/jb n consent: Unable to determine movement status, assess appearance, affect, AIMS, or vital signs. 12/02/2024 Other Reasons, potential benefits, potential risks, interactions and side effects of all medications were discussed. The Patient/Guardian asked appropriate questions, appeared to understand the answers, and decided to accept the treatment and continue being followed. Alternatives and expected course without treatment were reviewed. The Patient/Guardian is aware of the need to contact the office or return for an earlier appointment if any problems or concerns arise. May also contact the 24-hour crisis hotline ([facility]), refer to the closest emergency room or call 911 if new symptoms arise of existing symptoms worsen. The Patient/Guardian is aware that this would apply to symptoms like: suicidal ideation, homicidal ideation, high risk behaviors, manic symptoms, psychotic symptoms, physical symptoms, or any other symptoms that may be dangerous to self or others. Greater than 50% of time spent on coordination and counseling where psychopharmacology as well as psychotherapeutic interventions were discussed along with review of treatments in the past. Education provided concerning need for adequate hydration. Patient/Guardian verbalized understanding of education, treatment plan and follow up. This session was completed telephonically with client/parental/jb n consent: Unable to determine movement status, assess appearance, affect, AIMS, or vital signs. 12/28/2024 Other Reasons, potential benefits, potential risks, interactions and side effects of all medications were discussed. The Patient/Guardian asked appropriate questions, appeared to understand the answers, and decided to accept the treatment and continue being followed. Alternatives and expected course without treatment were reviewed. The Patient/Guardian is aware of the need to contact the office or return for an earlier appointment if any problems or concerns arise. May also contact the 24-hour crisis hotline ([facility]), refer to the closest emergency room or call 911 if new symptoms arise of existing symptoms worsen. The Patient/Guardian is aware that this would apply to symptoms like: suicidal ideation, homicidal ideation, high risk behaviors, manic symptoms, psychotic symptoms, physical symptoms, or any other symptoms that may be dangerous to self or others. Greater than 50% of time spent on coordination and counseling where psychopharmacology as well as psychotherapeutic interventions were discussed along with review of treatments in the past. Education provided concerning need for adequate hydration. Patient/Guardian verbalized understanding of education, treatment plan and follow up. 02/10/2025 Other Reasons, potential benefits, potential risks, interactions and side effects of all medications were discussed. The Patient/Guardian asked appropriate questions, appeared to understand the answers, and decided to accept the treatment and continue being followed. Alternatives and expected course without treatment were reviewed. The Patient/Guardian is aware of the need to contact the office or return for an earlier appointment if any problems or concerns arise. May also contact the 24-hour crisis hotline ([facility]), refer to the closest emergency room or call 911 if new symptoms arise of existing symptoms worsen. The Patient/Guardian is aware that this would apply to symptoms like: suicidal ideation, homicidal ideation, high risk behaviors, manic symptoms, psychotic symptoms, physical symptoms, or any other symptoms that may be dangerous to self or others. Greater than 50% of time spent on coordination and counseling where psychopharmacology as well as psychotherapeutic interventions were discussed along with review of treatments in the past. Education provided concerning need for adequate hydration. Patient/Guardian verbalized understanding of education, treatment plan and follow up. This session was completed telephonically with client/parental/jb n consent: Unable to determine movement status, assess appearance, affect, AIMS, or vital signs. 03/03/2025 Other Reasons, potential benefits, potential risks, interactions and side effects of all medications were discussed. The Patient/Guardian asked appropriate questions, appeared to understand the answers, and decided to accept the treatment and continue being followed. Alternatives and expected course without treatment were reviewed. The Patient/Guardian is aware of the need to contact the office or return for an earlier appointment if any problems or concerns arise. May also contact the 24-hour crisis hotline ([facility]), refer to the closest emergency room or call 911 if new symptoms arise of existing symptoms worsen. The Patient/Guardian is aware that this would apply to symptoms like: suicidal ideation, homicidal ideation, high risk behaviors, manic symptoms, psychotic symptoms, physical symptoms, or any other symptoms that may be dangerous to self or others. Greater than 50% of time spent on coordination and counseling where psychopharmacology as well as psychotherapeutic interventions were discussed along with review of treatments in the past. Education provided concerning need for adequate hydration. Patient/Guardian verbalized understanding of education, treatment plan and follow up. This session was completed telephonically with client/parental/jb n consent: Unable to determine movement status, assess appearance, affect, AIMS, or vital signs. 03/05/2025 Other Client is engaged in short term brief intervention therapy. 03/18/2025 Other Provider engage d in person centered therapy and motivational interviewing to re-establish therapeutic rapport. Clinician provided support, prompting and exploration of current symptom expression and assisted in elicit insight on behavior patterns, historic experience of trauma, trauma responses, and symptom management. 03/23/2025 Other Reasons, potential benefits, potential risks, interactions and side effects of all medications were discussed. The Patient/Guardian asked appropriate questions, appeared to understand the answers, and decided to accept the treatment and continue being followed. Alternatives and expected course without treatment were reviewed. The Patient/Guardian is aware of the need to contact the office or return for an earlier appointment if any problems or concerns arise. May also contact the 24-hour crisis hotline ([facility]), refer to the closest emergency room or call 911 if new symptoms arise of existing symptoms worsen. The Patient/Guardian is aware that this would apply to symptoms like: suicidal ideation, homicidal ideation, high risk behaviors, manic symptoms, psychotic symptoms, physical symptoms, or any other symptoms that may be dangerous to self or others. Greater than 50% of time spent on coordination and counseling where psychopharmacology as well as psychotherapeutic interventions were discussed along with review of treatments in the past. Education provided concerning need for adequate hydration. Patient/Guardian verbalized understanding of education, treatment plan and follow up. 03/30/2025 Other Plan Of Treatment Next Appt Details Provider Name:Randy sagastume, 04/13/2025 11:00:00 AM, [address], [id number], Provider Name:Nova thompson, 04/22/2025 12:40:00 PM, [address] [place] [address], [id number], Insurance Providers Payer Name Payer Address Payer Phone Subscriber Number Group Number Insured Name Patient Relationship to Insured Coverage Start Date Coverage End Date [facility] Claims Department [address] [id number] Natalio, Braxton Self - patient is the insured 3 5 [facility] Att Claims Department [address] [phone] [id number] Natalio, Braxton Self - patient is the insured 5 [facility] [address] [id number] Natalio, Braxton Self - patient is the insured 3 5 [employer] [address] [place] [address] [id number] Natalio, Braxton Self - patient is the insured 5 5 [facility] Attn Claims Department [address] [address] [id number] Natalio, Braxton Self - patient is the insured 5 [facility] Attn Claims Department [address] [id number] Braxton Lance Self - patient is the insured Medications Administered Medication Instructions Date of Administration Dosage Diagnosis (ICD Code) Notes Vivitrol 01/18/2023 380 mg Pt. pawan ated well. No questions/concer ns at this time. Vivitrol 03/28/2023 380 mg Kothari, M elanie D 03/28/2023 09:20 AM >Given Rt Gluteus, tolerated well Vivitrol 06/26/2024 380 mg Kothari, M elanie D 06/26/2024 10:00 AM CDT >Given Lt Gluteus, tolerated well. [facility]# [id number]. Vivitrol 07/30/2024 380 mg Kothari, M elanie D 07/30/2024 09:42 AM CDT >Given Rt Gluteus, tolerated well. [facility]# [id number]. Medical (General) History Medical History History ICD Code Alcohol use disorder Kratom use GERD Surgical History Surgery Date(Month/Year) [place] in left leg 2019 Hospitalization History Reason Date(Month/Year) [facility] [place] [facility] 2021 [facility] x2 2021 [place] [address] Mental Health 2022 [place] in left leg 2018
--- OUTSIDE RECORDS SUMMARY | 2025-04-08 04:38 | XMS_ITS | Clinical Summary ---
Author Organization [facility] Address [address] [place] [address] Care Team Providers Care Window Installation Subcontractor Name Role Phone None, Provider MD Primary Care Provider Unavaila ble Allergies No known active allergies Medications benztropine 1 MG tablet Take 1 mg by mouth nightly at bedtime. at bedtime. 07/25/2021 Active FLUoxetine 20 MG capsule Take 60 mg by mouth daily. 07/10/2021 Active hydrOXYzine 10 MG tablet Take 10 mg by mouth every 6 (six) hours as needed for Anxiety. 07/10/2021 Active QUEtiapine 50 MG tablet Take 50 mg by mouth nightly at bedtime. at bedtime. 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 Gender Identity Not on file Sexual Orientation Straight 12/22/2018 10 :58 AM CDT Last Filed Vital Signs Vital Sign Reading Time Taken Comments Blood Pressure 137/86 08/10/2021 8:10 AM CDT Pulse 97 08/10/2021 7:41 AM CDT Temperature 36.3 C (97.3 F) 08/10/2021 7:41 AM CDT Respiratory Rate 18 08/10/2021 7:41 AM CDT Oxygen Saturation 99% 08/10/2021 8:10 AM CDT Inhaled Oxygen Concentration - - Weight 79.4 kg (175 lb) 08/10/2021 7:41 AM CDT Height 188 cm (6' 2) 08/10/2021 7:41 AM CDT Body Mass Index 22.47 08/10/2021 7:41 AM CDT Plan of Treatment Health Maintenance Due Date Last Done Comments Annual Physical 1996 Hepatitis C 10/04/2011 Pneumococcal Vaccine: Pediatrics (0 to 5 Years) and At-Risk Patients (6 to 49 Years) (1 of 2 - PCV) 2012 HPV Vaccines (1 - 3-dose SCDM series) 2020 DTaP, Tdap and Td Vaccines (7 - Td or Tdap) 11/13/2024 11/13/2014, 07/30/2007, 10/26/1998, Additional history exists COVID-19 Vaccine (2024- season) 2024 Influenza Adult (#1) 2025 Hepatitis B Vaccines Completed 04/11/1994, 02/06/1994, 1993 Hepatitis A Vaccines Aged Out No long er eligible based on patient's age to complete this topic Meningococcal B Vaccine Aged Out No l onger eligible based on patient's age to complete this topic Meningococcal Vaccine Aged Out No fely red eligible based on patient's age to complete this topic RSV Immunizations Under 20 Months Aged Out No longer eligible based on patient's age to complete this topic Insurance [facility] MEDICAID C/O [employer] [place] [id number] Care Teams Window Installation Subcontractor Relationship Specialty Start Date End Date None, Provider, PCP - General 12/22/18
--- NOTE | 2025-04-08 04:48 | ED.GENADULT ---
HPI - General Adult General Chief complaint: Psychiatric Symptoms <Ramón Alanis MD - Last Filed: 04/08/25 05:43> Stated complaint: SI <Ramón Alanis MD - Last Filed: 04/08/25 05:43> Time Seen by Provider: 04/08/25 04:08 <Ramón Alanis MD - Last Filed: 04/08/25 05:43> History of Present Illness HPI narrative: patient is a 29-year-old gentleman who presents emergency department with chief complaint of having hurtful thoughts. The patient reports he has been drinking tonight and has had thoughts of ut[place] <Ramón Alanis MD - Last Filed: 04/08/25 05:43> Related Data Home medications: Home Medications ?Medication ?Instructions ?Recorded ?Confirmed ?Last Taken ?Type clonidine HCl 0.1 mg 0.1 mg PO HS 04/08/25 04/08/25 Unknown History tablet,extended release,12 hr lamotrigine 100 mg tablet 100 mg PO Q12H 04/08/25 04/08/25 Unknown History vilazodone 10 mg tablet 10 mg PO DAILY 04/08/25 04/08/25 Unknown History <Ramón Alanis MD - Last Filed: 04/08/25 05:43> Allergies/adverse reactions: Allergies Allergy/AdvReac Type Severity Reaction Status Date / Time No Known Allergies Allergy Verified 04/08/25 07:21 <Ramón Alanis MD - Last Filed: 04/08/25 05:43> Review of Systems Review of Systems: A 10 system review of systems was completed on the patient and is negative except for what is stated in the HPI. Nursing and ancillary documentation was reviewed. <Ramón Alanis MD - Last Filed: 04/08/25 05:43> [facility] Past Medical History Medical History: Medical History Suicide attempt Hydrocele <Ramón Alanis MD - Last Filed: 04/08/25 05:43> Surgical History Surgical History: Surgical History S/P ORIF (open reduction internal fixation) fracture <Ramón Alanis MD - Last Filed: 04/08/25 05:43> Social History Social History: Social History Smoking status: Never smoker Alcohol intake: current Substance use: current Substance use type: marijuana <Ramón Alanis MD - Last Filed: 04/08/25 05:43> Exam Narrative: GENERAL: Well-appearing, well-nourished, and in no acute distress. HEAD: Normocephalic, atraumatic. EYES: PERRLA and EOMI. ENT: Nares clear, no rhinorrhea or epistaxis. Mucous membranes moist. NECK: Supple. CHEST: Clear to auscultation. No respiratory distress. HEART: Regular rate and rhythm. No murmur heard. Normal peripheral pulses. ABDOMEN: Soft, nontender, nondistended, normal active bowel sounds. EXTREMITIES: Normal range of motion. No edema. SKIN: Warm, dry, no rash. NEURO: No focal deficits. Alert and oriented x3. PSYCH: Normal mood and affect. <Ramón Alanis MD - Last Filed: 04/08/25 05:43> Course Course Emergency Course: Patient resting comfortably, awake alert orient x3. He has no suicidal ideation. He reports that when he is intoxicated and is having issues with his depression he says things that he does not mean. He has no intent to hurt himself or others. He has follow-up with his psychiatrist on April 13. He reports he plans on avoiding alcohol as he sees that this is a poor way to self medicate. <Juan Antonio Sanchez MD - Last Filed: 04/08/25 14:36> Vital Signs Vital signs: Vital Signs Temperature 97.7 F 04/08/25 03:55 Pulse Rate 92 04/08/25 03:55 Respiratory Rate 16 04/08/25 03:55 Blood Pressure 114/85 04/08/25 03:55 Pulse Oximetry 97 04/08/25 03:55 Oxygen Delivery Room Air 04/08/25 03:55 Temperature 98 F 04/08/25 07:20 Pulse Rate 96 04/08/25 14:07 Respiratory Rate 16 04/08/25 14:07 Blood Pressure 118/74 04/08/25 14:07 Pulse Oximetry 99 04/08/25 14:07 Oxygen Delivery Room Air 04/08/25 03:55 <Ramón Alanis MD - Last Filed: 04/08/25 05:43> Vital Signs Temperature 97.7 F 04/08/25 03:55 Pulse Rate 92 04/08/25 03:55 Respiratory Rate 16 04/08/25 03:55 Blood Pressure 114/85 04/08/25 03:55 Pulse Oximetry 97 04/08/25 03:55 Oxygen Delivery Room Air 04/08/25 03:55 Temperature 98 F 04/08/25 07:20 Pulse Rate 96 04/08/25 14:07 Respiratory Rate 16 04/08/25 14:07 Blood Pressure 118/74 04/08/25 14:07 Pulse Oximetry 99 04/08/25 14:07 Oxygen Delivery Room Air 04/08/25 03:55 <Juan Antonio Sanchez MD - Last Filed: 04/08/25 14:36> [facility] Differential Diagnosis Differential Diagnosis: differential diagnosis includes alcohol intoxication, suicidal ideation screening labs were ordered on the patient patient did start to have nausea vomiting and antiemetics were ordered for the patient. The patient while actively vomiting was asking to drink water it was explained to the patient that he should wait until after he gets the antiemetics before drinking water patient was extremely argumentative with staff. <Ramón Alanis MD - Last Filed: 04/08/25 05:43> Lab Data [facility] Lab Attestation statement: I personally reviewed the patient's lab results. <Ramón Alanis MD - Last Filed: 04/08/25 05:43> Result diagrams: 04/08/25 04:25 04/08/25 04:25 <Ramón Alanis MD - Last Filed: 04/08/25 05:43> Labs: Lab Results 04/08/25 04/08/25 04/08/25 Range/Units 04:25 07:09 13:28 WBC 10.1 H (4.5-10.0) K/mm3 RBC 4.87 (4.6-6.20) M/mm3 Hgb 15.6 (14.0-18.0) g/dL Hct 42.0 (42.0-52.0) % MCV 86.2 (80-100) fl MCH 32.0 (26-34) pg MCHC 37.1 H (32-36) g/dl RDW 12.0 (11.5-14.5) % Plt Count 256 (150-375) k/mm3 MPV 9.7 (7.4-10.4) fl Immature Gran % (Auto) 0.2 (0-0.5) % Neut % (Auto) 84.7 H (45.5-73.1) % Lymph % (Auto) 10.0 L (18.3-44.2) % [place] % (Auto) 4.1 (2.6-8.5) % Eos % (Auto) 0.5 (0-4.4) % Baso % (Auto) 0.5 (0.2-1.2) % Lymph # (Auto) 1.01 (0.9-3.2) K/mm3 [place] # (Auto) 0.4 (0.1-0.6) K/mm3 Eos # (Auto) 0.1 (0-0.3) K/mm3 Baso # (Auto) 0.1 (0.0-0.1) K/mm3 Abs Immat Gran (auto) 0.02 (0.00-0.031) K/mm3 Absolute Neuts (auto) 8.5 H (1.3-6.7) K/mm3 Absolute Nucleated RBC 0.000 (0.0-0.012) K/mm3 Nucleated RBC % 0.0 (0.0-0.2) % Sodium 146 H (137-145) mmol/L Potassium 4.1 (3.4-5.0) mmol/L Chloride 109 H (98-107) mmol/L Carbon Dioxide 21 L (22-30) mmol/L Anion Gap 16 H (4-12) mmol/L BUN 10 (9-20) mg/dL Creatinine 0.93 (0.7-1.3) mg/dL Estim Creat Clear Calc Not Reportable Estimated GFR > 60 (59 - ) Glucose 106 (65-110) mg/dL Calcium 9.2 (8.4-10.2) mg/dL Total Bilirubin 0.5 (0.2-1.3) mg/dL AST 43 (17-59) U/L ALT 55 H (6-50) U/L Alkaline Phosphatase 76 (38-126) U/L Total Protein 8.7 H (6.3-8.2) g/dL Albumin 5.3 H (3.5-5.1) g/dL TSH 1.070 (0.465-4.680) uIU/mL Urine Color Yellow (Yellow) Urine Appearance Clear (Clear) Urine pH 7.0 (5.0-9.0) Ur Specific [place] 1.003 (1.001-1.035) Urine Protein Negative (Negative) mg/dL Urine Glucose (UA) Negative (Negative) mg/dL Urine Ketones Negative (Negative) mg/dL Ur Blood (Man) Negative (Negative) Urine Nitrate Negative (Negative) Urine Bilirubin Negative (Negative) Urine Urobilinogen 0.2 (<2.0) mg/dL Leukocyte Esterase Rfl Negative (Negative) LUZ/UL Salicylates < 1.0 L (2-20) mg/dL Urine Opiates Screen Negative (Negative) Urine Methadone Screen Negative (Negative) Acetaminophen < 10 L (10-30) ug/mL Ur Barbiturates Screen Negative (Negative) Ur Phencyclidine Scrn Negative (Negative) Ur Amphetamine Screen Negative (Negative) U Benzodiazepines Scrn Negative (Negative) Urine Cocaine Screen Negative (Negative) U Cannabinoids Screen Negative (Negative) Ethyl Alcohol 297 91 (<10) mg/dL SARS-CoV-2 RNA (RT-PCR) Negative (Negative) 04/08/25 Range/Units 14:24 WBC (4.5-10.0) K/mm3 RBC (4.6-6.20) M/mm3 Hgb (14.0-18.0) g/dL Hct (42.0-52.0) % MCV (80-100) fl MCH (26-34) pg MCHC (32-36) g/dl RDW (11.5-14.5) % Plt Count (150-375) k/mm3 MPV (7.4-10.4) fl Immature Gran % (Auto) (0-0.5) % Neut % (Auto) (45.5-73.1) % Lymph % (Auto) (18.3-44.2) % [place] % (Auto) (2.6-8.5) % Eos % (Auto) (0-4.4) % Baso % (Auto) (0.2-1.2) % Lymph # (Auto) (0.9-3.2) K/mm3 [place] # (Auto) (0.1-0.6) K/mm3 Eos # (Auto) (0-0.3) K/mm3 Baso # (Auto) (0.0-0.1) K/mm3 Abs Immat Gran (auto) (0.00-0.031) K/mm3 Absolute Neuts (auto) (1.3-6.7) K/mm3 Absolute Nucleated RBC (0.0-0.012) K/mm3 Nucleated RBC % (0.0-0.2) % Sodium (137-145) mmol/L Potassium (3.4-5.0) mmol/L Chloride (98-107) mmol/L Carbon Dioxide (22-30) mmol/L Anion Gap (4-12) mmol/L BUN (9-20) mg/dL Creatinine (0.7-1.3) mg/dL Estim Creat Clear Calc Estimated GFR (59 - ) Glucose (65-110) mg/dL Calcium (8.4-10.2) mg/dL Total Bilirubin (0.2-1.3) mg/dL AST (17-59) U/L ALT (6-50) U/L Alkaline Phosphatase (38-126) U/L Total Protein (6.3-8.2) g/dL Albumin (3.5-5.1) g/dL TSH (0.465-4.680) uIU/mL Urine Color (Yellow) Urine Appearance (Clear) Urine pH (5.0-9.0) Ur Specific [place] (1.001-1.035) Urine Protein (Negative) mg/dL Urine Glucose (UA) (Negative) mg/dL Urine Ketones (Negative) mg/dL Ur Blood (Man) (Negative) Urine Nitrate (Negative) Urine Bilirubin (Negative) Urine Urobilinogen (<2.0) mg/dL Leukocyte Esterase Rfl (Negative) LUZ/UL Salicylates (2-20) mg/dL Urine Opiates Screen (Negative) Urine Methadone Screen (Negative) Acetaminophen (10-30) ug/mL Ur Barbiturates Screen (Negative) Ur Phencyclidine Scrn (Negative) Ur Amphetamine Screen (Negative) U Benzodiazepines Scrn (Negative) Urine Cocaine Screen (Negative) U Cannabinoids Screen (Negative) Ethyl Alcohol Pending (<10) mg/dL SARS-CoV-2 RNA (RT-PCR) (Negative) <Ramón Alanis MD - Last Filed: 04/08/25 05:43> Lab Results 04/08/25 04/08/25 04/08/25 Range/Units 04:25 07:09 13:28 WBC 10.1 H (4.5-10.0) K/mm3 RBC 4.87 (4.6-6.20) M/mm3 Hgb 15.6 (14.0-18.0) g/dL Hct 42.0 (42.0-52.0) % MCV 86.2 (80-100) fl MCH 32.0 (26-34) pg MCHC 37.1 H (32-36) g/dl RDW 12.0 (11.5-14.5) % Plt Count 256 (150-375) k/mm3 MPV 9.7 (7.4-10.4) fl Immature Gran % (Auto) 0.2 (0-0.5) % Neut % (Auto) 84.7 H (45.5-73.1) % Lymph % (Auto) 10.0 L (18.3-44.2) % [place] % (Auto) 4.1 (2.6-8.5) % Eos % (Auto) 0.5 (0-4.4) % Baso % (Auto) 0.5 (0.2-1.2) % Lymph # (Auto) 1.01 (0.9-3.2) K/mm3 [place] # (Auto) 0.4 (0.1-0.6) K/mm3 Eos # (Auto) 0.1 (0-0.3) K/mm3 Baso # (Auto) 0.1 (0.0-0.1) K/mm3 Abs Immat Gran (auto) 0.02 (0.00-0.031) K/mm3 Absolute Neuts (auto) 8.5 H (1.3-6.7) K/mm3 Absolute Nucleated RBC 0.000 (0.0-0.012) K/mm3 Nucleated RBC % 0.0 (0.0-0.2) % Sodium 146 H (137-145) mmol/L Potassium 4.1 (3.4-5.0) mmol/L Chloride 109 H (98-107) mmol/L Carbon Dioxide 21 L (22-30) mmol/L Anion Gap 16 H (4-12) mmol/L BUN 10 (9-20) mg/dL Creatinine 0.93 (0.7-1.3) mg/dL Estim Creat Clear Calc Not Reportable Estimated GFR > 60 (59 - ) Glucose 106 (65-110) mg/dL Calcium 9.2 (8.4-10.2) mg/dL Total Bilirubin 0.5 (0.2-1.3) mg/dL AST 43 (17-59) U/L ALT 55 H (6-50) U/L Alkaline Phosphatase 76 (38-126) U/L Total Protein 8.7 H (6.3-8.2) g/dL Albumin 5.3 H (3.5-5.1) g/dL TSH 1.070 (0.465-4.680) uIU/mL Urine Color Yellow (Yellow) Urine Appearance Clear (Clear) Urine pH 7.0 (5.0-9.0) Ur Specific [place] 1.003 (1.001-1.035) Urine Protein Negative (Negative) mg/dL Urine Glucose (UA) Negative (Negative) mg/dL Urine Ketones Negative (Negative) mg/dL Ur Blood (Man) Negative (Negative) Urine Nitrate Negative (Negative) Urine Bilirubin Negative (Negative) Urine Urobilinogen 0.2 (<2.0) mg/dL Leukocyte Esterase Rfl Negative (Negative) LUZ/UL Salicylates < 1.0 L (2-20) mg/dL Urine Opiates Screen Negative (Negative) Urine Methadone Screen Negative (Negative) Acetaminophen < 10 L (10-30) ug/mL Ur Barbiturates Screen Negative (Negative) Ur Phencyclidine Scrn Negative (Negative) Ur Amphetamine Screen Negative (Negative) U Benzodiazepines Scrn Negative (Negative) Urine Cocaine Screen Negative (Negative) U Cannabinoids Screen Negative (Negative) Ethyl Alcohol 297 91 (<10) mg/dL SARS-CoV-2 RNA (RT-PCR) Negative (Negative) 04/08/25 Range/Units 14:24 WBC (4.5-10.0) K/mm3 RBC (4.6-6.20) M/mm3 Hgb (14.0-18.0) g/dL Hct (42.0-52.0) % MCV (80-100) fl MCH (26-34) pg MCHC (32-36) g/dl RDW (11.5-14.5) % Plt Count (150-375) k/mm3 MPV (7.4-10.4) fl Immature Gran % (Auto) (0-0.5) % Neut % (Auto) (45.5-73.1) % Lymph % (Auto) (18.3-44.2) % [place] % (Auto) (2.6-8.5) % Eos % (Auto) (0-4.4) % Baso % (Auto) (0.2-1.2) % Lymph # (Auto) (0.9-3.2) K/mm3 [place] # (Auto) (0.1-0.6) K/mm3 Eos # (Auto) (0-0.3) K/mm3 Baso # (Auto) (0.0-0.1) K/mm3 Abs Immat Gran (auto) (0.00-0.031) K/mm3 Absolute Neuts (auto) (1.3-6.7) K/mm3 Absolute Nucleated RBC (0.0-0.012) K/mm3 Nucleated RBC % (0.0-0.2) % Sodium (137-145) mmol/L Potassium (3.4-5.0) mmol/L Chloride (98-107) mmol/L Carbon Dioxide (22-30) mmol/L Anion Gap (4-12) mmol/L BUN (9-20) mg/dL Creatinine (0.7-1.3) mg/dL Estim Creat Clear Calc Estimated GFR (59 - ) Glucose (65-110) mg/dL Calcium (8.4-10.2) mg/dL Total Bilirubin (0.2-1.3) mg/dL AST (17-59) U/L ALT (6-50) U/L Alkaline Phosphatase (38-126) U/L Total Protein (6.3-8.2) g/dL Albumin (3.5-5.1) g/dL TSH (0.465-4.680) uIU/mL Urine Color (Yellow) Urine Appearance (Clear) Urine pH (5.0-9.0) Ur Specific [place] (1.001-1.035) Urine Protein (Negative) mg/dL Urine Glucose (UA) (Negative) mg/dL Urine Ketones (Negative) mg/dL Ur Blood (Man) (Negative) Urine Nitrate (Negative) Urine Bilirubin (Negative) Urine Urobilinogen (<2.0) mg/dL Leukocyte Esterase Rfl (Negative) LUZ/UL Salicylates (2-20) mg/dL Urine Opiates Screen (Negative) Urine Methadone Screen (Negative) Acetaminophen (10-30) ug/mL Ur Barbiturates Screen (Negative) Ur Phencyclidine Scrn (Negative) Ur Amphetamine Screen (Negative) U Benzodiazepines Scrn (Negative) Urine Cocaine Screen (Negative) U Cannabinoids Screen (Negative) Ethyl Alcohol Pending (<10) mg/dL SARS-CoV-2 RNA (RT-PCR) (Negative) <Juan Antonio Sanchez MD - Last Filed: 04/08/25 14:36> Discharge Plan Discharge Clinical Impression: Alcohol intoxication, Nausea and vomiting <Ramón Alanis MD - Last Filed: 04/08/25 05:43> Patient Disposition: Home <Ramón Alanis MD - Last Filed: 04/08/25 05:43> Condition: Stable <Ramón Alanis MD - Last Filed: 04/08/25 05:43> Instructions: Abuse of Alcohol (ED) <Ramón Alanis MD - Last Filed: 04/08/25 05:43> Additional Instructions: Take her home medications as prescribed. Avoid alcohol, return to the ER if you have thoughts of harming herself or others. <Ramón Alanis MD - Last Filed: 04/08/25 05:43> Patient Language: Croatian <Ramón Alanis MD - Last Filed: 04/08/25 05:43> Prescriptions: No Action vilazodone 10 mg tablet 10 mg PO DAILY Patient Comments: with food lamotrigine 100 mg tablet 100 mg PO Q12H clonidine HCl 0.1 mg tablet extended release 12 hr 0.1 mg PO HS <Ramón Alanis MD - Last Filed: 04/08/25 05:43> Follow-up/Referrals: Neal Patricia MD [Physician, Family Practice] - 1 Week PHYSICIAN,TANKER SERVICE ATTENDANT [Primary Care Provider, Internal Medicine] <Ramón Alanis MD - Last Filed: 04/08/25 05:43>
[2025-04-08 04:49] LABS: Acetaminophen < 10 ug/mL (10-30); Salicylate < 1.0 mg/dL (2-20)
[2025-04-08 04:51] LABS: Add Urine Microscopic? NO; Appearance Urine Clear (Clear); Glucose Urine UA Negative (Negative); Leukocyte Esterase Ur Negative LEU/UL (Negative); Nitrate Urine Negative (Negative); Specific Grav Ur 1.003 (1.001-1.035)
[2025-04-08] MEDS: ACETAMINOPHEN 500 MG TABLET 1000 MG PO (04:55)
[2025-04-08 05:04] LABS: Alanine Aminotransferase 55 U/L (6-50); Albumin Level 5.3 g/dL (3.5-5.1); Alkaline Phosphatase 76 U/L (38-126); Anion Gap 16 mmol/L (4-12); Aspartate Amino Transferase 43 U/L (17-59); Bilirubin,Total 0.5 mg/dL (0.2-1.3); Blood Urea Nitrogen 10 mg/dL (9-20); Calcium 9.2 mg/dL (8.4-10.2); Carbon Dioxide 21 mmol/L (22-30); Chloride 109 mmol/L (98-107); Estimated Glomerular Filt Rate > 60; Glucose 106 mg/dL (65-110); Potassium 4.1 mmol/L (3.4-5.0); Sodium 146 mmol/L (137-145); Total Protein 8.7 g/dL (6.3-8.2)
[2025-04-08 05:08] LABS: Cannabinoid Screen Urine Negative (Negative)
[2025-04-08] MEDS: PROCHLORPERAZINE EDISYLATE 10 MG/2 ML VIAL IM (05:24)
[2025-04-08 05:36] LABS: Thyroid Stimulating Hormone 1.070 uIU/mL (0.465-4.680)
[2025-04-08 07:20] VITALS: BP 101/64; PULSE 97; RESP 16; TEMP 36.6; O2SAT 99
[2025-04-08 07:52] LABS: SARS-CoV-2 RNA PCR Negative (Negative)
--- NOTE | 2025-04-08 10:35 | PC.NURSE ---
Tray ordered for pt
--- NOTE | 2025-04-08 10:47 | PC.NURSE ---
Marily, mother, called for patient update. All questions answered.
[2025-04-08 11:16] VITALS: BP 101/57; PULSE 77; RESP 16; O2SAT 97
[2025-04-08 14:07] VITALS: BP 118/74; PULSE 96; RESP 16; O2SAT 99
[2025-04-08] MEDS: lamoTRIgine 50 MG TABLET PO (14:20)
--- NOTE | 2025-04-08 14:40 | PC.NURSE ---
PT mother, Marily, called ED requesting update on son. Pt gave consent for RN to speak with mother. Pt mother informed that per EDP pt was considered clinically sober. Pt mother also informed that patient was denying suicidal/homicidal thoughts and that pt preferred to be discharged to home rather than speak with a crisis in home sales representative.
[2025-04-08 14:51] VITALS: BP 110/86; PULSE 87; RESP 17; TEMP 36.7; O2SAT 98
== END 2025-04-08 14:56 | disposition home or self-care (01) ==
PROVIDERS: Emergency Medicine; Emergency Provider Emergency Medicine
DX: F10.129 Alcohol abuse with intoxication, unspecified (principal); R11.2 Nausea with vomiting, unspecified; Y90.8 Blood alcohol level of 240 mg/100 ml or more; Z20.822 Contact with and (suspected) exposure to COVID-19
CPT/HCPCS: 36415; 80053; 80143; 80179; 80307; 81003; 82077; 84443; 85025; 87635; 93005; 96372; 99284; A9270; J0780; J1200